=== PATIENT | male | born 1960 | race Caucasian/White ===

== ENCOUNTER 2017-04-15 08:01 | Outpatient (CLI) | payer MEDICARE ==
--- NOTE | ~2017-04-15 | HEMODYNAMI ---
PATIENT:MATTHEW GOMEZ MEDICAL RECORD: [id number] : 62 LOCATION:[facility] ADMISSION DATE: 04/15/17 Generatedon:04/15/20179:29 Patient name: MATTHEW GOMEZ Patient #: [id number] SSN: : 1960 Date of study: 04/15/2017 Page: Of Hemodynamic Procedure Report Patient Data Patient Demographics Procedure consent was obtained First Name: MATTHEW Gender: Male Last Name: JASON : 1960 Middle Initial: RAY Age: 56 year(s) Patient #: [id number] Race: Unknown Additional ID: [id number] Contact details Address: [address] [place] [address] State: [place] City: [facility] Zip code: [address] Admission Admission Data Admission Date: 04/15/2017 Admission Time: 8:01 Weight (lbs.): 209.44 Weight (kg.): 95 Lab Results Lab Result Date: 04/15/2017 Lab Result Time: 0:00 Biochemistry Name Units Result Min Max BUN mg/dl 11 --(-*--)-- 7 18 Creatinine mg/dl 0.7 --(*---)-- 0.6 1.3 CBC Name Units Result Min Max Hemoglobin g/dl 15 --(-*--)-- 13.5 17.5 Procedure Procedure Types Cath Procedure Diagnostic Procedure [facility] w/Coronaries PCI Procedure Coronary Stent Initial Miscellaneous Procedures Moderate Sedation up to 30 minutes Procedure Description Procedure Date Procedure Date: 04/15/2017 Procedure Start Time: 8:59 Procedure End Time: 9:27 Procedure Staff Name Function Dung Sainz MD Performing Physician Echo Fountain RT Scrub Naun Fuentes RN Nurse Niranjan Abarca RT Monitor Procedure Data Cath Procedure Fluoroscopy Diagnostic fluoroscopy Total fluoroscopy Time: 4.6 time: 4.6 min min Diagnostic fluoroscopy Total fluoroscopy dose: dose: 1066 mGy 1066 mGy Contrast Material Contrast Material Type Amount (ml) Isovue 300 117 Entry Location Entry Primary Successful Side Size Upsize Upsize Entry Closure Fuentes ccessful Closure Location (Fr) 1 (Fr) 2 (Fr) Remarks Device Remarks Radial Right 6 Fr Mechanical artery Short Compression Estimated blood loss: 10 ml Diagnostic catheters Device Type Used For End Catheter Placement Terumo 5Fr Felix 110cm Procedure catheter Procedure Complications No complications Procedure Medications Medication Administration Route Dosage 0.9% NaCl I.V. 100 ml/hr Oxygen NC 2 l/min Heparin Flush Bag added to field 2 bags (1000units/500ml NS) Lidocaine 2% added to field 20 Radial Cocktail added to field 1 syringe (Verapomil 2mg/Nitro 400mcg/Heparin 1500units) Versed I.V. 2 mg Fentanyl I.V. 100 mcg Radial Cocktail I.A. 1 syringe (Verapomil 2mg/Nitro 400mcg/Heparin 1500units) Heparin Bolus I.V. 9500 units Plavix P.O. 600 mg Hemodynamics Rest HGB: 15 (g/dl) Heart Rate: 62 (bpm) Pressure Samples Time Site Value (mmHg) Purpose Heart Use Rate(bpm) 9:05 LV 98/2,8 Snapshot 62 9:06 AO 95/56(71) Pullback 62 9:06 LV 100/9,12 Pullback 62 9:07 AO 95/60(76) Snapshot 60 Gradients Valve Time Site 1 Site 2 Mean SEP/DFP Peak To Heart Use (mmHg) (sec/min) Peak Rate (mmHg) (bpm) Aortic 9:06 LV AO 4 11 5 62 100/9,12 95/56(71) Calculations Valve P-P Mean Valve Index Valve Source Name Gradient Area Flow (cm2) Aortic 5 4 5 4 Snapshots Pre Cath Intra NCS Post Cath Vital Signs Time Heart Resp SPO2 etCO2 NIBP (mmHg) Rhythm Pain Sedation Rate (ipm) (%) (mmHg) Status Level (bpm) 8:55:49 61 20 99 33.6 142/84(118) NSR 0 (11) 10(A) , No pain 9:00:32 60 18 95 19.4 120/71(95) NSR 0 (11) 10(A) , No pain 9:05:10 62 16 93 37.3 101/52(78) NSR 0 (11) 10(A) , No pain 9:09:49 61 15 94 41.8 99/57(72) NSR 0 (11) 9(A) , No pain 9:14:27 60 14 94 41.8 106/57(79) NSR 0 (11) 9(A) , No pain 9:19:08 60 14 95 41.1 95/57(84) NSR 0 (11) 9(A) , No pain Medications Time Medication Route Dose Verified Delivered Reason Notes Effectiveness by by 8:54:48 0.9% NaCl I.V. 100 Naun Naun Per physician ml/hr Gina Fuentes RN RN 8:55:02 Oxygen NC 2 l/min Naun Naun Per physician Gina Fuentes RN RN 8:55:23 Heparin Flush added 2 bags Naun Naun used for Bag to Gina Fuentes procedure (1000units/500ml RN RN NS) 8:55:38 Lidocaine 2% added 20ml Naun Naun for local to vial Gina Fuentes anesthetic field BROCK RN 8:55:59 Radial Cocktail added 1 Naun Naun used for (Verapomil to syringe Gina Fuentes procedure 2mg/Nitro field BROCK RN 400mcg/Heparin 1500units) 8:58:24 Versed I.V. 2 mg Naun Naun for sedation Gina Fuentes RN RN 8:58:58 Fentanyl I.V. 100 mcg Naun Naun for sedation Gina Fuentes RN RN 9:03:28 Radial Cocktail I.A. 1 Naun Dung used for (Verapomil syringe Gina Sainz MD procedure 2mg/Nitro RN 400mcg/Heparin 1500units) 9:12:06 Heparin Bolus I.V. 9,500 Naun Dung for units Gina Sainz MD anticoagulation RN 9:21:38 Plavix P.O. 600 mg Naun Dung for Gina Sainz MD antiplatelet RN therapy Procedure Log Time Note 8:25:48 Niranjan Abarca RT(R) sent for patient. Start room use. 8:41:01 Time tracking: Regular hours 8:41:05 Plan of Care:Hemodynamics will remain stable., Cardiac rhythm will remain stable., Comfort level will be maintained., Respiratory function will remain adequate., Patient/ family verbilizes understanding of procedure., Procedure tolerated without complication., Recovers from procedure without complications.. 8:41:19 H&P Date Dictated: 04/12/2017 Within 30 days and on chart., H&P Addendum completed by physician on day of procedure. (MUST COMPLETE FOR ALL OUTPATIENTS). 8:43:22 Patient received from Pre/Post Procedure Room to CCL 1 Alert and oriented. Tansferred to table in Supine position. 8:43:23 Warm blankets applied, and naomie hugger turned on for patient comfort. 8:43:23 Correct patient and procedure confirmed by team. 8:43:25 Signed procedure consent form obtained from patient. 8:43:26 ECG and BP/O2 sat monitors applied to patient. 8:54:48 0.9% NaCl 100 ml/hr I.V. was administered by Naun Fuentes RN; Per physician; 8:54:58 Vital chart was started 8:54:59 Baseline sample Acquired. 8:55:02 Oxygen 2 l/min NC was administered by Naun Fuentes RN; Per physician; 8:55:03 Rhythm: paced 8:55:04 Full Disclosure recording started 8:55:05 Pre-procedure instructions explained to patient. 8:55:06 Pre-op teaching completed and patient verbalized understanding. 8:55:09 Family in waiting room. 8:55:11 Patient NPO since Midnight. 8:55:12 Is the patient allergic to Iodine/contrast media? No. 8:55:14 Is patient on blood thinner?No 8:55:15 Patient diabetic? Yes. 8:55:18 If diabetic: On Metformin? Yes 8:55:20 If on Metformin: Last Dose? 04/13/2017 8:55:23 Heparin Flush Bag (1000units/500ml NS) 2 bags added to field was administered by Naun Fuentes RN; used for procedure; 8:55:24 Previous problem with sedation/anesthesia? No ? 8:55:25 Snore? Yes 8:55:26 Sleep apnea? Yes 8:55:27 Deviated septum? No 8:55:28 Opens mouth fully? Yes 8:55:29 Sticks out tongue? Yes 8:55:32 Airway obstruction? Yes COPD 8:55:38 Lidocaine 2% 20ml vial added to field was administered by Naun Fuentes RN; for local anesthetic; 8:55:41 Dentures? No ? 8:55:44 Pre procedure: right dorsailis pedis pulse 1+ Palpable, but thready & weak; easily obliterated 8:55:48 Modified Kirby's test Ulnar < 7 seconds 8:55:49 Patient pain scale 0/10 ?. 8:55:54 IV patent on arrival in left forearm with 0.9% NaCl at O. 8:55:56 Lab results completed and on chart. 8:55:58 Right Radial & Right Groin area was prepped with chlora-prep and draped in sterile fashion 8:55:59 Radial Cocktail (Verapomil 2mg/Nitro 400mcg/Heparin 1500units) 1 syringe added to field was administered by Naun Fuentes RN; used for procedure; 8:56:00 Alarms reviewed by R. N. 8:56:00 Sharps counted by scrub and verified by R.N. 8:56:01 --------ALL STOP TIME OUT------ 8:56:02 Final Timeout: patient, procedure, and site verified with staff and physician. All members of the team are in agreement. 8:56:04 Right Radial & Right Groin site verified by team. 8:56:07 Physical assessment completed. ASA score P 2 - A patient with mild systemic disease as per Dung Sainz MD. 8:56:10 Sedation plan: IV Moderate Sedation Versed, Fentanyl 8:58:24 Versed 2 mg I.V. was administered by Naun Fuentes RN; for sedation; 8:58:58 Fentanyl 100 mcg I.V. was administered by Naun Fuentes RN; for sedation; 8:59:14 Use device set Radial Dx 8:59:16 Tegaderm 4 x 4 opened to sterile field. 8:59:17 Acist Hand Control opened to sterile field. 8:59:17 Acist Manifold opened to sterile field. 8:59:18 Acist Syringe opened to sterile field. 8:59:19 Medline Cath Pack opened to sterile field. 8:59:19 Bag Decanter opened to sterile field. 8:59:19 Terumo 6Fr Slender Glidesheath opened to sterile field. 8:59:20 St Андрей 260cm J .035 wire opened to sterile field. 8:59:21 MBrace Wrist Support opened to sterile field. 8:59:23 Procedure started. 8:59:28 Local anesthetic to right radial artery with Lidocaine 2% by Dung Sainz MD.INITIAL ACCESS ONLY 9:01:03 Cook 21G 4cm Radial Needle opened to sterile field. 9:03:08 A 6 Fr Short sheath was inserted into the Right Radial artery 9:03:28 Radial Cocktail (Verapomil 2mg/Nitro 400mcg/Heparin 1500units) 1 syringe I.A. was administered by Dung Sainz MD; used for procedure; 9:03:29 Patient Weight : 209.44 lbs 9:03:40 A [employer] Experience 5Fr Felix 110cm catheter was advanced over the wire and used for Procedure. 9:04:57 Lab Result : BUN 11 mg/dl 9::58 Lab Result : Hemoglobin 15 g/dl 9::58 Lab Result : Creatinine 0.7 mg/dl 9:05:43 LV angiography performed. 9:05:47 LV gram done using ARELLANO 9:05:59 EF : 50 % 9:06:39 LV hemodynamics recorded. 9:06:41 Injector settings: Ml/sec: 7, Volume: 15, 9:06:52 RCA angiography performed. 9:07:14 LCA angiography performed. 9:09:16 Catheter exchanged over wire. 9:11:39 [employer] 6FR XBLAD 3.5 guide catheter opened to sterile field. 9:11:39 LoLo BMW [place] 2 J-tip 300cm 0.014 guide wir opened to sterile field. 9:11:40 [employer] BasixCompak Inflation Kit opened to sterile field. 9:11:40 High Pressure Extension Tubing (Sainz) opened to sterile field. 9:11:55 Study PCI Site: [place] pCirc has 70% stenosis. 9:11:58 ACC Pre-intervention ROMANA Flow is 3. 9:12:04 6 Fr XBLAD 3.5 guide catheter was inserted over the wire 9:12:06 Heparin Bolus 9,500 units I.V. was administered by Dung Sainz MD; for anticoagulation; 9:12:30 BMW wire advanced. 9:15:17 Wire advanced across lesion. 9:19:41 Inflation Number: 1 A MeetBalltronic Integrity 4.0 X 12 stent was prepped and advanced across the Prox CX. The stent was deployed at 12 MYRNA for 0:10 (min:sec). 9:19:47 ACC Post-intervention ROMANA Flow is 3. 9:19:49 Stent catheter was removed intact over wire. 9::49 Wire removed. 9::50 Guide catheter removed. 9:21:38 Plavix 600 mg P.O. was administered by Dung Sainz MD; for antiplatelet therapy; 9::49 Sheath removed intact; hemostasis achieved with Mechanical Compression to the Right Radial artery. 9:21:57 Procedure ended.(Physican Out) 9:23:58 Fluoroscopy time 04.60 minutes. 9:24:02 Flurop Dose total: 1066 9:24:02 Fluoroscopy dose: 1066 mGy 9:24:08 Contrast amount:Isovue 300 117ml. 9:24:11 Sharps counted by scrub and verified by R.N. 9:24:18 Insertion/operative site no bleeding no hematoma. 9:24:21 Post Procedure Pulses reassessed and unchanged 9:24:25 Post-procedure physical assessment completed. ASA score P 2 - A patient with mild systemic disease as per Dung Sainz MD. 9:24:27 Post procedure rhythm: unchanged. 9:24:31 Estimated blood loss: 10 ml 9:24:32 Post procedure instruction explained to patient.Patient verbalizes understanding. 9:24:33 Patient needs reinforcement of post procedure teaching. 9:24:45 Procedure type changed to Cath procedure, Diagnostic procedure, LHC, LHC w/Coronaries, PCI procedure, Coronary Stent Initial, Miscellaneous Procedures, Moderate Sedation up to 30 minutes 9:24:49 Procedure Complication : No complications 9:25:17 Terumo TR Band Standard opened to sterile field. 9:25:31 Procedure and supply charges have been captured, reviewed, submitted and are correct. 9:27:23 Vital chart was stopped 9:27:23 See physician's report for complete and final results. 9:27:27 Report given to Pre/Post Procedure Room. 9:27:44 Patient transfered to Pre/Post Procedure Room with Stretcher. 9::47 Procedure ended. 9::47 Full Disclosure recording stopped 9:28:00 End room use (Document Last) Intervention Summary Intervention Notes Time ActionType Lesion and Equipment Action# Pressure Duration Attributes Used 9:19:41 Place stent Prox CX Medtronic 1 12 00:10 Integrity 4.0 X 12 stent Device Usage Item Name Manufacture Quantity Catalog Hospital Part Current Minimal Lot# / Number Charge Number Stock Stock Serial# Code Tegaderm 4 3M 1 [id number] 035616 639134 5 x 4 Acist Hand Acist 1 73265 592679 803464 706674 5 Control Medical Systems Inc Acist Acist 1 61904 565545 673366 961736 5 Manifold Medical Systems Inc Acist Acist 1 87080 684963 385864 238172 20 Syringe Medical Systems Inc Medline Cardinal 1 [id number] 480518 29070 997825 5 Cath Pack Health Bag Microtek 1 2002S 700710 28960 197235 5 Decanter Medical Inc. Terumo 6Fr Terumo 1 [id number] 090453 598802 960204 [address] Андрей 1 801522 348560 078133 337941 30 260cm J .035 wire MBrace Advanced 1 [id number] 888173 25045 076021 5 Wrist Vascular Support Dynamics Cook 21G Cook Medical 1 [id number] 130498 749038 716586 5 4cm Radial Needle Terumo 5Fr Terumo 1 10-2601 621142 055907 401613 5 Felix 110cm catheter Cordis 6FR Cardinal 1 [id number] 557115 841363 079382 10 XBLAD 3.5 Health guide catheter Alvarez BMW Alvarez 1 [id number] 563733 258495 859953 5 [place] 2 Vascular J-tip 300cm 0.014 guide wir Merit Merit 1 CU0384 296991 713584 349006 15 BasixLds Hospit[facility] Medical Inflation Kit High Merit 1 [id number] 058494 92379 558953 10 Pressure Medical Extension Tubing (Sainz) Medtronic Medtronic 1 [id number] 342749 099674 0 [id number] Integrity 4.0 X 12 stent Terumo TR Terumo 1 [id number] 341209 195763 347201 40 Band Standard Signature Audit Brantley Stage Time Signature Unsigned Intra-Procedure 04/15/2017 Niranjan Abarca 9:29:38 AM RT(R) Signatures Monitor : Niranjan Abarca RT Signature : Date : Time : [place] [address] [place] [address]
[2017-04-15 06:58] VITALS: BP 137/82; BMI 30.8
[2017-04-15 07:05] LABS: BASOPHILS 0.1 % (0-2); EOSINOPHILS 1.8 % (0-7); HEMATOCRIT 43.3 % (42.0-54.0); IMMATURE GRANULOCYTES 0.3 % (0-5); LYMPHOCYTES 25.4 % (15-50); MCH 30.9 pg (26.0-34.0); MCHC 34.6 g/dL (31.0-37.0); MCV 89.3 fL (80.0-100.0); MEAN PLATELET VOLUME 10.3 fL (7.4-10.4); MONOCYTES 6.9 % (2-11); NEUTROPHILS 65.5 % (40-80); PLATELET COUNT 147 10x3/uL (130-400); RBC 4.85 10x6/uL (4.20-6.10); WBC 7.4 10x3/uL (4.8-10.8)
[2017-04-15 07:18] LABS: CALC OSMOLALITY 276 mosm/kg (275-300); CALCIUM 9.4 mg/dL (8.5-10.1); CARBON DIOXIDE 26.5 mmol/L (21.0-32.0); CHLORIDE - SERUM 102 mmol/L (98-107); CREATININE - SERUM 0.7 mg/dL (0.6-1.3); GLUCOSE 169 mg/dL (74-106); SODIUM 137 mmol/L (136-145); UREA NITROGEN 11 mg/dL (7-18); eGFR NON AFRICAN AMERICAN > 90 mL/min (90-120)
[~2017-04-15 08:01] MED LIST: CYMBALTA60 MG PO; GLUCOPHAGE1000 MG PO; LEVEMIR100 U/M1; LEVEMIR100 U/M1 SC; PROTONIX40 MG PO
[2017-04-15] MEDS ORDERED: PLAVIX75 MG PO (09:40)
[2017-04-15] MEDS ORDERED: BAYER CHEWABLE81 MG PO (09:40)
--- NOTE | 2017-04-15 09:44 | NUR ---
RECIEVED TO ROOM VIA STRETCHER FROM ICT HELP DESK OFFICER WITH REPORTS OF ONE STENT TO THE CIRCUMFLEX. TR BAND TO THE R/WRIST CDI NO BLEEDING NO HEMATOMA NOTED. INSTRUCTED PATIENT TO KEEP RUE STRAIGHT NO BENDING OR FLEXING OF WRIST
--- NOTE | 2017-04-15 09:58 | NUR ---
VSS WITH CHEST PAIN DENIED. TR BAND TO R/WRIST CDI NO BLEEDING NO HEMATOMA NOTED. REPOSITIONED TO SITTING WITH HOB UP 30 DEGREES. SANDWICH AND SODA TO BEDSIDE
--- NOTE | 2017-04-15 10:16 | NUR ---
DENIED PAIN OR NEEDS AT THIS TIME WITH TR BAND TO R/WRIST CDI
--- NOTE | 2017-04-15 10:30 | NUR ---
PATIENT VOIDS 400 CC URINE TO COLLECTION
--- NOTE | 2017-04-15 10:52 | NUR ---
VISITING WITH FAMILY AT BEDSIDE. TR BAND REMAINS TO R/WRIST CDI NO BLEEDING NO HEMATOMA NOTED. VSS NO DISTRESS
--- NOTE | 2017-04-15 11:10 | NUR ---
1110 PT RESTING WITH EYES CLOSED, AWAKENS EASILY. DENIES ANY C/O. TR BAND IS CDI, NO BLEEDING OR HEMATOMA NOTED. FINGERS WARM, CAP REFILL IS BRISK. CALL LIGHT IN REACH.
--- NOTE | 2017-04-15 12:36 | NUR ---
1220 4 CC OF AIR REMOVED FROM TR BAND WITH NO BLEEDING OR HEMATOMA NOTED. FINGERS WARM, CAP REFILL IS BRISK. PT DENIES ANY C/O AT THIS TIME. FAMILY AT BEDSIDE.
--- NOTE | 2017-04-15 13:10 | NUR ---
1310 ALL AIR HAS BEEN REMOVED FROM TR BAND WITH NO BLEEDING OR HEMATOMA NOTED AT SITE. IV DC'D WITH CATH INTACT. PT IS DRESSING FOR DC TO HOME.
--- NOTE | 2017-04-15 13:51 | NUR ---
1330 DC INSTRUCTIONS HAVE BEEN REVIEWED WITH PT AND FAMILY WHO VERBALIZE UNDERSTANDING. REVIEWED WITH PT TO HOLD METFORMIN FOR 48 HOURS AFTER CATH THEN RESTART ORDERED AND PT VERBALIZES UNDERSTANDING. PLAVIX PRESCRIPTION TO PATIENT. PT VERBALIZES UNDERSTADNING TO START THIS MEDICATION TOMORROW. PT HAS AMBULATED TO THE BATHROOM AND VOIDED QS. PT ESCORTED TO PRIVATE AUTO VIA WC BY NURSE WITH FAMILY DRIVING HIM HOME. 2X2 AND TEGADERM REMAIN CDI TO CATH SITE, WRIST IMMOBILIER IN PLACE. PT DENIES ANY C/O UPON DC TO HOME.
== END 2017-04-15 13:30 | disposition home or self-care (01) ==
LOC: D.CATH 08:01
PROVIDERS: Internal Medicine Cardiovascular Disease
DX: I25.119 Atherosclerotic heart disease of native coronary artery with unspecified angina pectoris (principal); Z01.812 Encounter for preprocedural laboratory examination

== ENCOUNTER 2018-09-28 08:45 | Outpatient (CLI) | payer MEDICARE ==
[~2018-09-28] VITALS: Ht 175.3 cm; Wt 94.5 kg
--- NOTE | ~2018-09-28 | HEMODYNAMI ---
PATIENT:MATTHEW GOMEZ MEDICAL RECORD: [id number] : 62 LOCATION:[facility] ADMISSION DATE: 09/28/18 Generatedon:09/28/201811:08 Patient name: MATTHEW GOMEZ Patient #: [id number] SSN: : 1960 Date of study: 09/28/2018 Page: Of Hemodynamic Procedure Report Patient Data Patient Demographics Procedure consent was obtained First Name: MATTHEW Gender: Male Last Name: JASON : 1960 Middle Initial: RAY Age: 57 year(s) Patient #: [id number] Race: Unknown Additional ID: [id number] Contact details Address: [address] [place] [address] State: [place] City: [facility] Zip code: [address] Admission Admission Data Admission Date: 09/28/2018 Admission Time: 8:45 Admit Source: Other Procedure Procedure Types Cath Procedure Diagnostic Procedure LHC LHC w/Coronaries Peripheral Cath Diagnostic Procedure 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 Peripheral Procedures Four Vessel Arteriogram Procedure Description Procedure Date Procedure Date: 09/28/2018 Procedure Start Time: 10:55 Procedure End Time: 11:06 Procedure Staff Name Function David Greer MD Performing Physician Kendal Delgado RN Nurse Luca Adame RT Scrub Echo Founatin RT Monitor Procedure Data Cath Procedure Fluoroscopy Diagnostic fluoroscopy Total fluoroscopy Time: 1.9 time: 1.9 min min Diagnostic fluoroscopy Total fluoroscopy dose: 685 dose: 685 mGy mGy Contrast Material Contrast Material Type Amount (ml) Isovue 300 122 Entry Location Entry Primary Successful Side Size Upsize Upsize Entry Closure Succes sful Closure Location (Fr) 1 (Fr) 2 (Fr) Remarks Device Remarks Femoral Right 5 Fr Exoseal artery Estimated blood loss: 5 ml Diagnostic catheters Device Type Used For End Catheter Placement MULTIPACK Pigtail 5 Fr Procedure catheter MULTIPACK JL 4.0 5Fr Procedure catheter MULTIPACK 3DRC 5Fr Procedure catheter Procedure Complications No complications Procedure Medications Medication Administration Route Dosage 0.9% NaCl I.V. 100 ml/hr Oxygen etCO2 Nasal cannula 2 l/min Lidocaine 2% added to field 20 Heparin Flush Bag added to field 2 bags (1000units/500ml NS) Versed I.V. 2 mg Fentanyl I.V. 50 mcg Versed I.V. 1 mg Fentanyl I.V. 25 mcg Hemodynamics Rest Heart Rate: 66 (bpm) Snapshots Pre Cath Intra NCS Post Cath Vital Signs Time Heart Resp SPO2 etCO2 NIBP (mmHg) Rhythm Pain Sedation Rate (ipm) (%) (mmHg) Status Level (bpm) 10:28:33 65 16 99 35.8 132/96(112) Paced 0 (11) 10(A) , No pain 10:32:41 60 18 98 32.9 138/91(109) Paced 0 (11) 10(A) , No pain 10:36:57 58 17 95 36.6 120/76(99) Paced 0 (11) 10(A) , No pain 10:41:05 60 18 97 35.1 121/76(94) Paced 0 (11) 10(A) , No pain 10:45:15 59 15 97 38.1 125/70(99) Paced 0 (11) 10(A) , No pain 10:49:15 62 15 98 40.3 115/74(89) Paced 0 (11) 10(A) , No pain 10:53:22 62 14 98 39.6 107/72(91) Paced 0 (11) 10(A) , No pain 10:57:28 58 16 98 35.8 107/71(94) Paced 0 (11) 10(A) , No pain 11:01:34 63 13 98 38.1 119/71(88) Paced 0 (11) 10(A) , No pain 11:05:46 62 18 97 35.8 116/67(93) Paced 0 (11) 10(A) , No pain Medications Time Medication Route Dose Verified Delivered Reason Notes Eff ectiveness by by 10:30:08 0.9% NaCl I.V. 100 David Kendal used for ml/hr Percy Delgado director of institutional research 10:30:16 Oxygen etCO2 2 David Kendal used for Nasal l/min Percy Delgado procedure cannula RN 10:30:23 Lidocaine 2% added 20ml David Hernandez for local to vial Percy Greer MD anesthetic field 10:30:28 Heparin Flush added 2 David Ellingtonrey used for Bag to bags Percy Greer MD procedure (1000units/500ml field NS) 10:49:35 Versed I.V. 2 mg David Kendal for Percy Delgado sedation RN 10:49:42 Fentanyl I.V. 50 David Kendal for mcg Percy Delgado sedation RN 10:53:17 Versed I.V. 1 mg David Laneyla for Percy Delgado sedation RN 10:53:22 Fentanyl I.V. 25 David Kendal for mcg Percy Delgado sedation publications inspector Log Time Note 10:27:34 Vital chart was started 10:27:37 Admit Source: Other 10::59 Diagnostic Cath status Elective 10:28:01 Luca Adame RT(R) sent for patient. Start room use. 10:28:02 Time tracking: Regular hours (M-F 7:00 - 5:00) 10:28:07 Plan of Care:Hemodynamics will remain stable., Cardiac rhythm will remain stable., Comfort level will be maintained., Respiratory function will remain adequate., Patient/ family verbilizes understanding of procedure., Procedure tolerated without complication., Recovers from procedure without complications.. 10:28:11 Patient received from Pre/Post Procedure Room to CCL 1 Alert and oriented. Tansferred to table in Supine position. 10:28:12 Warm blankets applied, and naomie hugger turned on for patient comfort. 10:28:12 Correct patient and procedure confirmed by team. 10:28:14 Signed procedure consent form obtained from patient. 10:28:15 ECG and BP/O2 sat monitors applied to patient. 10:28:16 Baseline sample Acquired. 10:28:19 Rhythm: sinus rhythm 10:28:20 Full Disclosure recording started 10:28:36 Pre-procedure instructions explained to patient. 10:28:37 Pre-op teaching completed and patient verbalized understanding. 10:28:39 Family in waiting room. 10:28:41 Patient NPO since Midnight. 10:28:48 Is the patient allergic to Iodine/contrast media? No. 10:30:08 0.9% NaCl 100 ml/hr I.V. was administered by Kendal Delgado RN; used for procedure; 10:30:14 Is patient on blood thinner?No 10:30:16 Oxygen 2 l/min etCO2 Nasal cannula was administered by Kendal Delgado RN; used for procedure; 10:30:16 Patient diabetic? Yes. 10:30:18 If diabetic: On Metformin? Yes 10:30:21 If on Metformin: Last Dose? 09/27/2018 10:30:22 ----Pre-sedation anethsthesia assessment.---- 10:30:23 Lidocaine 2% 20ml vial added to field was administered by David Greer MD; for local anesthetic; 10:30:25 Previous problem with sedation/anesthesia? No ? 10:30:27 Snore? Yes 10:30:28 Heparin Flush Bag (1000units/500ml NS) 2 bags added to field was administered by David Greer MD; used for procedure; 10:30:28 Sleep apnea? Yes 10:30:29 Deviated septum? No 10:30:31 Opens mouth fully? Yes 10:30:33 Sticks out tongue? Yes 10:30:37 Airway obstruction? Yes ? 10:30:40 Dentures? No ? 10:30:42 Pre procedure: right dorsailis pedis pulse 2+ Normal; easily identifiable; not easily obliterated 10:30:45 Patient pain scale 0/10 ?. 10:30:49 IV patent on arrival in left antecubital with 0.9% NaCl at 10ml/hr. 10:30:54 Lab results completed and on chart. 10:30:57 Right groin area was prepped with chlora-prep and draped in sterile fashion 10:30:58 Alarms reviewed by R. N. 10:30:58 Sharps counted by scrub and verified by R.N. 10:44:42 Baseline sample Acquired. 10:45:00 H&P Date Dictated: 09/26/2018 Within 30 days and on chart., H&P Addendum completed by physician on day of procedure. (MUST COMPLETE FOR ALL OUTPATIENTS). 10:45:04 Use device set Femoral Dx 10:45:05 ACIST Syringe (05954) opened to sterile field. 10:45:06 Bag Decanter (2002) opened to sterile field. 10:45:07 ACIST Hand Control (75869) opened to sterile field. 10:45:07 ACIST Manifold (43563) opened to sterile field. 10:45:08 Tegaderm 4 x 4 (1626W) opened to sterile field. 10:45:09 Medline Cath Pack ([id number]) opened to sterile field. 10:45:09 DIAGNOSTIC WIRE .035 260cm J wire (245926) opened to sterile field. 10:45:10 DIAGNOSTIC Multipack 5Fr catheter set (ES3660) opened to sterile field. 10:45:10 SHEATH 5FR [place] (TDC092) opened to sterile field. 10:49:15 --------ALL STOP TIME OUT------ 10:49:16 Final Timeout: patient, procedure, and site verified with staff and physician. All members of the team are in agreement. 10:49:17 Right groin site verified by team. 10:49:20 Maximum allowable Isovue 300 dose 300ml. Physician notified. (300ml for normal creatinines. For patients with creatinine of 1.7 or higher multiply weight(kg) x 5 divided by creatinine.) 10:49:23 Fire Safety Assessment: A--An alcohol-based skin anteseptic being used preoperatively., C--Open oxygen or nitrous oxide is being used., D--An ESU, laser, or fiber-optic light is being used. 10:49:30 Physical assessment completed. ASA score P 2 - A patient with mild systemic disease as per David Greer MD. 10:49:33 Sedation plan: IV Moderate Sedation Medication:Versed, Fentanyl 10:49:35 Versed 2 mg I.V. was administered by Kendal Delgado RN; for sedation; 10:49:42 Fentanyl 50 mcg I.V. was administered by Kendal Delgado RN; for sedation; 10:53:17 Versed 1 mg I.V. was administered by Kendal Delgado RN; for sedation; 10:53:22 Fentanyl 25 mcg I.V. was administered by Kendal Delgado RN; for sedation; 10:54:59 Procedure started. 10:55:00 Zero performed for pressure channel P1 10:55:15 Local anesthetic to right femoral artery with Lidocaine 2% by David Greer MD.INITIAL ACCESS ONLY 10:56:22 A 5 Fr sheath was inserted into the Right Femoral artery 10:56:42 A MULTIPACK Pigtail 5 Fr catheter was advanced over the wire and used for Procedure. 10:56:56 LV gram done using ARELLANO 10:57:01 Injector settings: Ml/sec: 10, Volume: 20, 10:57:24 EF : 50 % 10:57:25 Catheter removed. 10:57:30 A MULTIPACK JL 4.0 5Fr catheter was advanced over the wire and used for Procedure. 10:59:10 LCA angiography performed. 10:59:11 Catheter removed. 10:59:18 A MULTIPACK 3DRC 5Fr catheter was advanced over the wire and used for Procedure. 11:00:07 RCA angiography performed. 11:01:22 Right carotid angiography performed. 11:01:23 Left carotid angiography performed. 11:01:30 Catheter removed. 11:01:35 EXOSEAL 5Fr (EX500) opened to sterile field. 11:01:38 MICROPUNCTURE 4FR Personal MedSystems (I67875) opened to sterile field. 11:02:59 Sheath removed intact; hemostasis achieved with Exoseal to the Right Femoral artery. 11:03:08 Procedure ended.(Physican Out) 11:03:33 Fluoroscopy time 01.90 minutes. 11:03:39 Fluoroscopy dose: 685 mGy 11:03:39 Flurop Dose total: 685 11:04:28 Contrast amount:Isovue 300 122ml. 11:04:30 Sharps counted by scrub and verified by R.N. 11:04:32 Post-op/insertion site Right Femoral artery dressed using a 4 x 4 and Tegaderm. 11:04:35 Post-procedure physical assessment completed. ASA score P 2 - A patient with mild systemic disease as per David Greer MD. 11:04:41 Post procedure rhythm: paced 11:04:44 Estimated blood loss: 5 ml 11:04:45 Post procedure instruction explained to patient.Patient verbalizes understanding. 11:04:45 Patient needs reinforcement of post procedure teaching. 11:05:50 Procedure and supply charges have been captured, reviewed, submitted and are correct. 11:05:54 Procedure Complication : No complications 11:06:02 Vital chart was stopped 11:06:04 Report given to Pre/Post Procedure Room. 11:06:05 See physician's report for complete and final results. 11:06:07 Patient transfered to Pre/Post Procedure Room with Bed. 11:06:09 Procedure ended. 11:06:09 Full Disclosure recording stopped 11:06:13 End room use (Document Last) Device Usage Item Name Manufacture Quantity Catalog Hospital Part Current Minimal Lot# / Number Charge Number Stock Stock Serial# Code ACIST Syringe Acist 1 38119 556499 241140 811989 20 (77531) Medical Systems Inc Bag Decanter Microtek 1 2001S 857303 04736 801347 5 (2001S) Medical Inc. ACIST Hand Acist 1 61368 733394 502108 467136 5 Control Medical (34725) Systems Inc ACIST Acist 1 60322 327202 819526 735067 5 Manifold Medical (57016) Systems Inc Tegaderm 4 x 3M 1 1626W 521683 896219 587410 5 4 (1626W) Medline Cath Medline 1 [id number] 798958 69842 016009 5 Pack ([id number]) DIAGNOSTIC St [place] 1 533409 132681 295518 738305 30 WIRE .035 260cm J wire (332807) DIAGNOSTIC Cardinal 1 QS3940 022845 85356 729820 30 Multipack 5Fr Health catheter set (HH1762) SHEATH 5FR Terumo 1 RTE050 356815 470753 867124 5 [place] (RXH770) MULTIPACK Cardinal 1 004042 5 Pigtail 5 Fr Health catheter MULTIPACK JL Cardinal 1 446351 5 4.0 5Fr Health catheter MULTIPACK Cardinal 1 466700 5 3DRC 5Fr Health catheter EXOSEAL 5Fr Cardinal 1 EX500 278137 478851 425767 10 (EX500) Health MICROPUNCTURE [facility] 1 [id number] 335694 647301 348213 5 4FR [place] ([id number]) Signature Audit [place] Stage Time Signature Unsigned Intra-Procedure 09/28/2018 Echo Fountain 11:08:16 AM RT(R) Signatures Monitor : Echo Fountain Signature : RT Date : Time : [place] [id number] [place] [address]
[~2018-09-28 08:45] MED LIST changes: +BAYER CHEWABLE81 MG PO; +PLAVIX75 MG PO
[2018-09-28] MEDS ORDERED: PRAVACHOL20 MG PO (09:01)
[2018-09-28] MEDS ORDERED: METOPROLOL TART50 MG PO (09:01)
[2018-09-28] MEDS ORDERED: TRESIBA FL100 UNIT/1 SC (09:02)
[2018-09-28 09:16] VITALS: BP 131/74; Ht 175.3 cm; Wt 94.5 kg
[2018-09-28 09:21] LABS: BASOPHILS 0.1 % (0-2); EOSINOPHILS 1.4 % (0-7); HEMATOCRIT 42.7 % (42.0-54.0); HEMOGLOBIN 15.2 g/dL (13.5-17.5); IMMATURE GRANULOCYTES 0.2 % (0-5); LYMPHOCYTES 25.9 % (15-50); MCH 30.6 pg (26.0-34.0); MCHC 35.6 g/dL (31.0-37.0); MCV 86.1 fL (80.0-100.0); MEAN PLATELET VOLUME 9.9 fL (7.4-10.4); MONOCYTES 8.7 % (2-11); NEUTROPHILS 63.7 % (40-80); PLATELET COUNT 175 10x3/uL (130-400); RBC 4.96 10x6/uL (4.20-6.10); RDW 13.6 % (11.5-14.5)
[2018-09-28 09:31] LABS: CALC OSMOLALITY 279 mosm/kg (275-300); CALCIUM 9.1 mg/dL (8.5-10.1); CARBON DIOXIDE 28.8 mmol/L (21.0-32.0); CHLORIDE - SERUM 102 mmol/L (98-107); CREATININE - SERUM 0.9 mg/dL (0.6-1.3); GLUCOSE 175 mg/dL (74-106); POTASSIUM - SERUM 4.4 mmol/L (3.5-5.1); SODIUM 138 mmol/L (136-145); UREA NITROGEN 12 mg/dL (7-18); eGFR NON AFRICAN AMERICAN > 90 mL/min (90-120)
--- NOTE | 2018-09-28 11:30 | NUR ---
2L NC, NO RESP DISTRESS. RIGHT GROIN 5F EXOSEAL CDI, NO BLEEDING OR HEMATOMA NOTED. NO C/O PAIN OR NAUSEA. VSS. FAMILY AT BEDSIDE, CALL LIGHT WITHIN REACH.
--- NOTE | 2018-09-28 12:05 | NUR ---
HOB ELEVATED 30 DEGREES. RIGHT GROIN 5F EXOSEAL CDI, NO BLEEDING OR HEMATOMA NOTED. SIPPING ON DRINK AND EATING SANDWICH WITH NO C/O NAUSEA. VSS. WILL CONTINUE TO MONITOR CLOSELY.
--- NOTE | 2018-09-28 12:20 | NUR ---
400CC VOIDED INTO URINAL.
--- NOTE | 2018-09-28 12:40 | NUR ---
RIGHT GROIN 5F EXOSEAL CDI, NO BLEEDING OR HEMATOMA NOTED. LEFT PIV D/C'D WITH CATHETER INTACT, BAND AID TO SITE. UP TO BEDSIDE TO GET DRESSED.
--- NOTE | 2018-09-28 12:50 | NUR ---
DISCHARGE INSTRUCTIONS GIVEN TO PT AND . BOTH VERBALIZED UNDERSTANDING.
--- NOTE | 2018-09-28 12:58 | NUR ---
TAKEN OUT VIA WHEELCHAIR BY CATH POWER SYSTEM OPERATOR. LEFT FACILITY WITH FAMILY AND ALL PERSONAL BELONGINGS.
--- NOTE | 2018-09-28 14:39 | OP ---
PATIENT NAME: MATTHEW GOMEZ MEDICAL RECORD: [id number] :62 LOCATION:D[facility] ADMISSION DATE: SURGEON: FAHAD CORNELL MD DATE OF OPERATION: 09/28/2018 PROCEDURES: 1. Left heart catheterization. 2. Selective coronary angiography. 3. Left ventriculogram. 4. Four-vessel carotid vertebral angiography. INDICATION: Chest pain compatible with angina, dizziness, and near syncope. PROCEDURE IN DETAIL: After informed consent was obtained and after a detailed description of risks, benefits as well as alternative therapies, the patient elected to proceed with angiogram and heart catheterization. The right femoral area was prepped and draped in normal sterile fashion. Right femoral artery was cannulated via modified Seldinger technique with placement of 5-Lithuanian sheath. All catheters exchanged through this sheath. FINDINGS: There was subselection of each subclavian as well as the left carotid. RIGHT SIDE: The common internal and external carotids have mild plaquing, none greater than 10% to 20%, no flow-limiting stenosis. Vertebral artery has no significant disease. LEFT SYSTEM: The common internal and external carotids have mild plaquing, none greater than 10% to 20%, no flow-limiting stenosis. Vertebral artery has no significant disease. Left ventriculogram was performed in standard 30-degree ARELLANO view, reveals good cardiac wall motion throughout all segments. Overall ejection fraction estimated 50%. SELECTIVE CORONARY ANGIOGRAPHY: Left main, less anterior descending, left circumflex, right coronary artery have only minimal irregularities, no flow-limiting stenosis, nothing greater than 10%. OVERALL IMPRESSION: 1. Minimal coronary artery disease is present. 2. Minimal carotid vascular disease is present. No flow limiting stenosis on either with preserved left ventricular function. TRANSINT:[id number] Voice Confirmation ID: [id number] DOCUMENT ID: [id number] FAHAD CORNELL MD at 1439 CC: [id number] DICTATION DATE: 09/28/18 1107 PANEL MAKER: 09/28/18 1317 DEP CLI 09/28/18 [id number] [place] [address]
== END 2018-09-28 12:58 | disposition home or self-care (01) ==
LOC: D.CATH 08:45
PROVIDERS: ATTEND Internal Medicine Interventional Cardiology
DX: R07.89 Other chest pain (principal); R55 Syncope and collapse; R42 Dizziness and giddiness; Z01.812 Encounter for preprocedural laboratory examination

== ENCOUNTER → 2019-02-16 09:12 | Outpatient (CLI) | payer MEDICARE ==
[2018-09-28 09:16] VITALS: BMI 30.8
[~2019-02-16 09:12] MED LIST changes: +LEVEMIR IN100 UNITS/ SC; +METOPROLOL TART50 MG PO; +PIOGLITAZONE15 MG PO; +PRAVACHOL20 MG PO; +TRESIBA FL100 UNIT/1 SC; +VIAGRA100 MG PO
--- NOTE | 2019-02-22 14:32 | ST ---
PATIENT:MATTHEW GOMEZ MEDICAL RECORD: [id number] SEX: M LOCATION:[facility] ORDER #: ADMISSION DATE: 02/16/19 AGE OF PATIENT: 58 REFERRING PHYSICIAN: INTERPRETING PHYSICIAN: FAHAD CORNELL MD DATE OF SERVICE: 02/16/2019 INDICATION: Angina, coronary artery disease, and abnormal ECG. He was exercised on standard Lexiscan protocol with 28 mCi of sestamibi injected at peak stress, 10 mCi were used previously for rest images. FINDINGS: Gated SPECT reveals preserved ejection fraction at 52% with good wall motioning and thickening and brightening throughout all segments. SPECT IMAGING: Cardiolite was used as myocardial perfusion agent. There are large areas of reversibility inferiorly, apically, and anteriorly. This includes the basal, mid, apical anterior segments basal, mid, apical and inferior segments as well as the apex itself. The degree of reversibility is moderate to severe. The amount of myocardium involved is very large. OVERALL IMPRESSION: This is a high risk abnormal nuclear stress test, large area of reversible ischemia inferiorly, apically, and anteriorly suggestive of multivessel coronary artery disease. TRANSINT:[id number] Voice Confirmation ID: [id number] DOCUMENT ID: [id number] cc: EMILIE Griffith JEFFREY MD at 1432 CC: [id number] DICTATION DATE: 02/17/19 1356 CORE EXTRUDER: 02/17/19 2339 DEP CLI 02/16/19 [place] [id number]
== END | disposition home or self-care (01) ==
LOC: D.HCCARDIO 09:12
PROVIDERS: ATTEND Internal Medicine Interventional Cardiology
DX: I25.10 Atherosclerotic heart disease of native coronary artery without angina pectoris (principal)

== ENCOUNTER 2019-02-22 08:16 | Outpatient (CLI) | payer MEDICARE ==
[~2019-02-22] VITALS: Ht 175.3 cm; Wt 100.0 kg
--- NOTE | ~2019-02-22 | HEMODYNAMI ---
PATIENT:MATTHEW GOMEZ MEDICAL RECORD: [id number] : 62 LOCATION:[facility] ADMISSION DATE: 02/22/19 Generatedon:02/22/201910:15 Patient name: MATTHEW GOMEZ Patient #: [id number] SSN: [id number] : 1960 Date of study: 02/22/2019 Page: Of Hemodynamic Procedure Report Patient Data Patient Demographics Procedure consent was obtained First Name: MATTHEW Gender: Male Last Name: JASON : 1960 Middle Initial: RAY Age: 58 year(s) Patient #: [id number] Race: Unknown SSN: [id number] Additional ID: [id number] Contact details Address: [address] [place] [address] State: [place] City: [facility] Zip code: [address] Admission Admission Data Admission Date: 02/22/2019 Admission Time: 8:16 Arrival Date: 02/22/2019 Arrival Time: 10:30 Admit Source: Other Insurance Payor: Medicare Height (in.): 68.9 BSA: 2.15 (m2) Height (cm.): 175 BMI: 32.65 (kg/m2) Weight (lbs.): 220.46 Weight (kg.): 100 Lab Results Lab Result Date: 02/22/2019 Lab Result Time: 0:00 Biochemistry Name Units Result Min Max BUN mg/dl 11 --(-*--)-- 7 18 Creatinine mg/dl 0.9 --(-*--)-- 0.6 1.3 eGFR ml/min 90 --(*---)-- 90 120 NONAFRICAN CBC Name Units Result Min Max Hemoglobin g/dl 15.4 --(-*--)-- 13.5 17.5 Procedure Procedure Types Cath Procedure Diagnostic Procedure LHC LH w/Coronaries Sedation Charges Moderate Sedation up to 15 minutes Procedure Description Procedure Date Procedure Date: 02/22/2019 Procedure Start Time: 9:52 Procedure End Time: 10:11 Procedure Staff Name Function Lanny Parrish RN Senior Technical Architect David Greer MD Performing Physician Jose Fraser RT Scrub Kendal Delgado RN Nurse Selene Ravi RT Monitor Procedure Data Cath Procedure Fluoroscopy Diagnostic fluoroscopy Total fluoroscopy Time: 3.3 time: 3.3 min min Diagnostic fluoroscopy Total fluoroscopy dose: 724 dose: 724 mGy mGy Contrast Material Contrast Material Type Amount (ml) Isovue 300 53 Entry Location Entry Primary Successful Side Size Upsize Upsize Entry Closure Fuentes ccessful Closure Location (Fr) 1 (Fr) 2 (Fr) Remarks Device Remarks Radial Right 6 Fr Mechanical artery Short Compression Estimated blood loss: 5 ml Diagnostic catheters Device Type Used For End Catheter Placement DIAGNOSTIC [place] 110cm 5 Multi-vessel Fr catheter ([id number]) Angiography Procedure Complications No complications Procedure Medications Medication Administration Route Dosage Oxygen etCO2 Nasal cannula 2 l/min Lidocaine 2% added to field 20 Heparin Flush Bag added to field 2 bags (1000units/500ml NS) 0.9% NaCl I.V. 100 ml/hr Radial Cocktail I.A. 1 syringe (Verapamil 2mg/Nitro 400mcg/Heparin 1500units) Versed I.V. 1 mg Fentanyl I.V. 50 mcg Versed I.V. 1 mg Fentanyl I.V. 50 mcg Hemodynamics Rest BSA: 2.15 (m2) HGB: 15.4 (g/dl) O2 Consumption: Estimated: 246.09 (ml/min) O2 Co nsumption indexed: Estimated:114.46 (ml/min/m) Heart Rate: 60 (bpm) Pressure Samples Time Site Value (mmHg) Purpose Heart Use Rate(bpm) 9:56 LV 28/20,14 Snapshot 65 Snapshots Pre Cath Intra NCS Post Cath Vital Signs Time Heart Resp SPO2 etCO2 NIBP (mmHg) Rhythm Pain Sedation Rate (ipm) (%) (mmHg) Status Level (bpm) 9:46:29 67 21 99 30.1 156/97(137) Paced 0 (11) 10(A) , No pain 9:50:59 60 19 97 33.9 131/84(103) Paced 0 (11) 10(A) , No pain 9:55:23 64 20 96 30.9 114/74(86) Paced 0 (11) 9(A) , No pain 9:59:45 63 17 94 33.2 115/71(91) Paced 0 (11) 9(A) , No pain 10:04:03 60 17 96 36.2 113/72(88) Paced 0 (11) 9(A) , No pain 10:06:43 60 16 95 36.2 113/74(86) Paced 0 (11) 10(A) , No pain 10:11:03 60 16 96 36.2 123/72(90) Paced 0 (11) 10(A) , No pain Medications Time Medication Route Dose Verified Delivered Reason Notes Effectiveness by by 9:50:08 Oxygen etCO2 2 l/min Davidnapoleon Fishie used for Nasal Percy Parrish RN procedure cannula 9:50:33 Lidocaine 2% added 20ml Davidnapoleon Hernandez for local to vial Percy Greer MD anesthetic field 9:50:38 Heparin Flush added 2 bags David Hernandez used for Bag to Percy Greer MD procedure (1000units/500ml field NS) 9:50:52 0.9% NaCl I.V. 100 David Ca Per ml/hr Percy Parrish RN physician 9:51:19 Versed I.V. 1 mg David Ca for sedation Percy Parrish RN 9:51:24 Fentanyl I.V. 50 mcg David Ca for sedation Percy Parrish RN 9:54:34 Versed I.V. 1 mg David Fishie for sedation Percy Parrish RN 9:54:37 Fentanyl I.V. 50 mcg David Ca for sedation Percy Parrish RN 9:55:31 Radial Cocktail I.A. 1 David Hernandez for (Verapamil syringe Percy Greer MD vasodilation 2mg/Nitro 400mcg/Hepari Procedure Log Time Note 9:23:28 Informed consent obtained and on chart 9:28:11 Admit Source: Other 9:29:39 ACC Patient presents with Stable Angina CCS Anginal Class 3--Marked limitation of physical activity, angina occurs with ordinary activity.. 9:30:38 ACCPatient has been prescribed/administered the following anti-anginal medication within the last 2 weeks: Beta Judith 9:30:41 Procedure Status Elective Heart Cath (OP). 9:30:42 Kendal Delgado RN sent for patient. Start room use. 9:30:43 Time tracking: Regular hours (M-F 7:00 - 5:00) 9:30:46 Plan of Care:Hemodynamics will remain stable., Cardiac rhythm will remain stable., Comfort level will be maintained., Respiratory function will remain adequate., Patient/ family verbilizes understanding of procedure., Procedure tolerated without complication., Recovers from procedure without complications.. 9:38:20 Patient received from Pre/Post Procedure Room to CCL 1 Alert and oriented. Tansferred to table in Supine position. 9:38:22 Correct patient and procedure confirmed by team. 9:38:22 Warm blankets applied, and naomie hugger turned on for patient comfort. 9:38:23 ECG and BP/O2 sat monitors applied to patient. 9:38:24 Pre-op teaching completed and patient verbalized understanding. 9:38:24 Pre-procedure instructions explained to patient. 9:38:33 H&P Date Dictated: 02/07/2019 Within 30 days and on chart., H&P Addendum completed by physician on day of procedure. (MUST COMPLETE FOR ALL OUTPATIENTS). 9:45:05 Vital chart was started 9:45:06 Baseline sample Acquired. 9:45:14 Rhythm: paced 9:45:33 Full Disclosure recording started 9:45:35 Family in patients room. 9:45:38 Patient NPO since Midnight. 9:45:39 Is the patient allergic to Iodine/contrast media? No. 9:45:40 Was the patient premedicated? No 9:45:43 Is patient on blood thinner?No 9:45:45 Patient diabetic? Yes. 9:45:47 If diabetic: On Metformin? Yes 9:45:50 If on Metformin: Last Dose? 02/21/2019 9:45:56 Previous problem with sedation/anesthesia? No ? 9:45:58 Snore? Yes 9:45:59 Sleep apnea? Yes 9:46:01 Deviated septum? No 9:46:02 Sticks out tongue? Yes 9:46:02 Opens mouth fully? Yes 9:46:06 Airway obstruction? Yes asthma 9:46:19 Dentures? No ? 9:46:29 Pre procedure: right dorsailis pedis pulse 2+ Normal; easily identifiable; not easily obliterated 9:46:31 Pre procedure: left dorsailis pedis pulse 2+ Normal; easily identifiable; not easily obliterated 9:46:34 Patient pain scale 0/10 ?. 9:46:48 IV patent on arrival in left antecubital with 0.9% NaCl at KVO. 9:46:50 Lab results completed and on chart. 9:46:53 Right Radial & Right Groin area was prepped with chlora-prep and draped in sterile fashion 9:46:54 Alarms reviewed by R. N. 9:46:55 Sharps counted by scrub and verified by R.N. 9:48:11 Lab Result : eGFR NONAFRICAN 90 ml/min 9:48:11 Lab Result : Hemoglobin 15.4 g/dl 9:48:11 Lab Result : BUN 11 mg/dl 9:48:11 Lab Result : Creatinine 0.9 mg/dl 9:48:17 Patient Height : 68.9 inches 9:48:21 Patient Weight : 220.46 lbs 9:49:16 Insurance Payor : Medicare 9:49:20 Arrival Date: 02/22/2019 10:30:00 AM 9:50:08 Oxygen 2 l/min etCO2 Nasal cannula was administered by Lanny Parrish RN; used for procedure; 9:50:33 Lidocaine 2% 20ml vial added to field was administered by David Greer MD; for local anesthetic; 9:50:38 Heparin Flush Bag (1000units/500ml NS) 2 bags added to field was administered by David Greer MD; used for procedure; 9:50:52 0.9% NaCl 100 ml/hr I.V. was administered by Lanny Parrish RN; Per physician; 9:51:00 --------ALL STOP TIME OUT------ 9:51:00 Physician arrived 9:51:01 Final Timeout: patient, procedure, and site verified with staff and physician. All members of the team are in agreement. 9:51:06 Right Radial & Right Groin site verified by team. 9:51:10 Fire Safety Assessment: A--An alcohol-based skin anteseptic being used preoperatively., C--Open oxygen or nitrous oxide is being used., D--An ESU, laser, or fiber-optic light is being used. 9:51:16 Physical assessment completed. ASA score P 2 - A patient with mild systemic disease as per David Greer MD. 9:51:19 Versed 1 mg I.V. was administered by Lanny Parrish RN; for sedation; 9:51:21 1) 90+ Normal kidney functon but urine findings or structural abnormalities or genetic trait point to kidney disease. 9:51:24 Fentanyl 50 mcg I.V. was administered by Lanny Parrish RN; for sedation; 9:51:26 Maximum allowable contrast dose (3.7 X eGFR X 0.75)250 ml. 9:51:30 Sedation plan: IV Moderate Sedation Medication:Versed, Fentanyl 9:51:38 Use device set Radial Dx or PCI 9:51:39 Medline Cath Pack ([id number]) opened to sterile field. 9:51:39 ACIST Syringe (52149) opened to sterile field. 9:51:40 ACIST Hand Control (19727) opened to sterile field. 9:51:40 Bag Decanter (2001S) opened to sterile field. 9:51:41 Tegaderm 4 x 4 (1626W) opened to sterile field. 9:51:41 ACIST Manifold (44076) opened to sterile field. 9:51:42 MBrace Wrist Support ([id number]) opened to sterile field. 9:51:49 SHEATH 6FR RAIN (3820683) opened to sterile field. 9:51:50 SOURAV Guide Wire (774-615) opened to sterile field. 9:52:05 Procedure started. 9:52:46 Local anesthetic to right radial artery with Lidocaine 2% by David Greer MD.INITIAL ACCESS ONLY 9:53:09 A 6 Fr Short sheath was inserted into the Right Radial artery 9:53:53 A DIAGNOSTIC [place] 110cm 5 Fr catheter (778832) was advanced over the wire and used for Multi-vessel Angiography. 9:54:34 Versed 1 mg I.V. was administered by Lanny Parrish RN; for sedation; 9:54:37 Fentanyl 50 mcg I.V. was administered by Lanny Parrish RN; for sedation; 9:55:31 Radial Cocktail (Verapamil 2mg/Nitro 400mcg/Heparin 1500units) 1 syringe I.A. was administered by David Greer MD; for vasodilation; 9:56:49 LV hemodynamics recorded. 9:56:50 LV gram done using ARELLANO 9:56:54 Injector settings: Ml/sec: 5, Volume: 15, 9:57:01 EF : 55 % 9:57:17 LCA angiography performed. 9:57:20 Injector settings: Ml/sec: 3, Volume: 6, 9:59:19 RCA angiography performed. 9:59:22 Injector settings: Ml/sec: 3, Volume: 6, 9:59:24 Catheter removed. 9:59:25 Proceeding to intervention. 10:00:32 Diamond Verrata Plus pressure wire (27055I) opened to sterile field. 10:00:32 GUIDE 6FR HS II SH catheter ([id number]) opened to sterile field. 10:00:33 INFLATOR Merit BasixCompak (FY2470) opened to sterile field. 10:01:03 ACCDominant side:Right 10:01:10 6 Fr hs 2 sh guide catheter was inserted over the wire 10:01:15 FFR/IFR wire advanced. 10:01:28 Baseline FFR 1. 10:03:57 Wire advanced across lesion. 10:04:07 pRCA lesion measured at 0.96 with IFR 10:04:48 mRCA lesion measured at 0.97 with IFR 10:05:36 Wire removed. 10:05:39 Guide catheter removed. 10:06:15 ZEPHYR REGULAR TR BAND (166942) opened to sterile field. 10:06:42 Sheath removed intact; hemostasis achieved with Mechanical Compression to the Right Radial artery. 10:06:44 Procedure ended.(Physican Out) 10:07:08 Fluoroscopy time 03.30 minutes. 10:07:37 Fluoroscopy dose: 724 mGy 10:07:37 Flurop Dose total: 724 10:07:52 Dose Area Product 07710 mGy/cm. 10:07:56 Contrast amount:Isovue 300 53ml. 10:08:03 Sharps counted by scrub and verified by R.N. 10:08:36 [place] band inflated with 10cc of air. 10:08:38 Insertion/operative site no bleeding no hematoma. 10:08:43 Post right radial artery:stable 10:09:27 Post Procedure Pulses reassessed and unchanged 10:09:58 Post procedure rhythm: unchanged. 10:10:01 Estimated blood loss: 5 ml 10:10:02 Post procedure instruction explained to patient.Patient verbalizes understanding. 10:10:03 Patient needs reinforcement of post procedure teaching. 10:10:12 Procedure type changed to Cath procedure, Diagnostic procedure, LHC, LHC w/Coronaries, Sedation Charges, Moderate Sedation up to 15 minutes 10:10:13 Procedure and supply charges have been captured, reviewed, submitted and are correct. 10:10:17 Procedure Complication : No complications 10:10:20 Vital chart was stopped 10:10:21 See physician's report for complete and final results. 10:10:54 Report given to Pre/Post Procedure Room. 10:10:57 Patient transfered to Pre/Post Procedure Room with Stretcher. 10:11:01 Full Disclosure recording stopped 10:11:01 Procedure ended. 10:11:05 End room use (Document Last) Device Usage Item Name Manufacture Quantity Catalog Hospital Part Current Mini mal Lot# / Number Charge Number Stock Stock Serial# Code ACIST Acist 1 33113 [id number] [id number] 20 Syringe Medical (88213) Systems Inc Medline Medline 1 [id number] 48711 935180 5 Cath Pack ([id number]) Bag Microtek 1 2001S 744142 19047 145837 5 Decanter Medical Inc. (2001S) ACIST Hand Acist 1 87936 305229 270390 590634 5 Control Medical (70936) Systems Inc ACIST Acist 1 91144 649910 053224 292787 5 Manifold Medical (30456) Systems Inc Tegaderm 4 3M 1 1626W 245140 906888 144693 5 x 4 (1626W) MBrace Advanced 1 140-0250-00 674120 69547 843849 5 Wrist Vascular Support Dynamics ([id number]) SHEATH 6FR Cardinal 1 7345460 172670 1384151 388311 5 [facility] (6091112) EMERALD Cardinal 1 502455 117233 529181 189031 5 Guide Wire Health (112-785) DIAGNOSTIC Terumo 1 40-8538 616901 396685 359361 5 [place] 110cm 5 Fr catheter (114827) GUIDE 6FR Medtronic 1 [id number] 943342 78366 098583 1 HS II SH catheter ([id number]) Diamond Diamond 1 [id number] 699465 [id number] 238828 5 Verrata Plus pressure wire (15482T) INFLATOR Merit 1 [id number] 476261 794174 717212 15 Merit Medical BasixCompak (LF7473) ZEPHYR Cardinal 1 591406 882034 5520423 496456 5 REGULAR TR Health BAND (182985) Signature Audit Solomon Stage Time Signature Unsigned Intra-Procedure 02/22/2019 Selene Ravi 10:15:14 AM RT(R) Signatures Performing Physician : Signature : David Greer MD Date : Time : Nurse : Kendal Delgado RN Signature : Date : Time : Monitor : Selene Ravi RT Signature : Date : Time : [address] [address]
[~2019-02-22 08:16] MED LIST changes: -LEVEMIR IN100 UNITS/ SC; -PIOGLITAZONE15 MG PO; -VIAGRA100 MG PO
[2019-02-22 09:00] VITALS: BP 135/86; Ht 175.3 cm; Wt 100.0 kg
[2019-02-22 09:15] LABS: BASOPHILS 0.1 % (0-2); EOSINOPHILS 1.3 % (0-7); HEMATOCRIT 42.4 % (42.0-54.0); HEMOGLOBIN 15.4 g/dL (13.5-17.5); IMMATURE GRANULOCYTES 0.4 % (0-5); LYMPHOCYTES 21.1 % (15-50); MCH 31.6 pg (26.0-34.0); MCHC 36.3 g/dL (31.0-37.0); MCV 87.1 fL (80.0-100.0); MEAN PLATELET VOLUME 10.1 fL (7.4-10.4); NEUTROPHILS 68.1 % (40-80); PLATELET COUNT 156 10x3/uL (130-400); RBC 4.87 10x6/uL (4.20-6.10); RDW 13.7 % (11.5-14.5); WBC 7.8 10x3/uL (4.8-10.8)
[2019-02-22] MEDS ORDERED: LEVEMIR IN100 UNITS/ SC (09:18)
[2019-02-22] MEDS ORDERED: PIOGLITAZONE15 MG PO ×2 (09:19→09:21)
[2019-02-22] MEDS ORDERED: VIAGRA100 MG PO (09:20)
[2019-02-22 09:24] LABS: CALC OSMOLALITY 286 mosm/kg (275-300); CALCIUM 9.2 mg/dL (8.5-10.1); CARBON DIOXIDE 29.7 mmol/L (21.0-32.0); CHLORIDE - SERUM 100 mmol/L (98-107); CREATININE - SERUM 0.9 mg/dL (0.6-1.3); POTASSIUM - SERUM 4.3 mmol/L (3.5-5.1); SODIUM 136 mmol/L (136-145); UREA NITROGEN 11 mg/dL (7-18); eGFR NON AFRICAN AMERICAN > 90 mL/min (90-120)
[2019-02-22 09:25] LABS: GLUCOSE 385 mg/dL (74-106)
--- NOTE | 2019-02-22 10:35 | NUR ---
1035 PT SLEEPING, RESP WITH EASE ON O2 AT 2LPM VIA NC. Z BAND IS CDI, FINGERS WARM AND CAP REFILL IS BRISK. VSS, AT BEDSIDE
--- NOTE | 2019-02-22 11:00 | NUR ---
PT STLEEPING, RESP WITH EASE. Z BAND IS CDI, FINGERS WARM AND CAP REFILL IS BRISK. VSS, AT BEDSIDE, CALL LIGHT IN REACH.
--- NOTE | 2019-02-22 11:19 | NUR ---
3 CC OF AIR WEANED FROM TR BAND WITH NO BLEEDING NOTED. FINGERS WARM AND CAP REFILL IS BRISK.
--- NOTE | 2019-02-22 11:36 | NUR ---
3 CC OF AIR WEANED FROM Z BAND WITH NO BLEEDING OR HEMATOMA NOTED.
--- NOTE | 2019-02-22 11:37 | NUR ---
HOB ELEVATED AND SANDWICH/ PO FLUIDS SERVED. PT IS ALERT AND DENIES ANY C/O. Z BAND CDI, FINGERS WARM AND CAP REFILL IS BRISK.
--- NOTE | 2019-02-22 11:50 | NUR ---
ALL AIR HAS BEEN WEANED FROM Z BAND WITH NO BLEEDING NOTED. FINGERS WARM, PULSES PALPABLE. WRIST IMMOBILIZER IN PLACE.
--- NOTE | 2019-02-22 12:04 | NUR ---
DC INSTRUCTIONS HAVE BEEN REVIEWED WITH PT AND WHO VERBALIZE UNDERSTANDING. IV DC'D WITH CATH INTACT, PT DRESSING FOR DC WITH ASSIST.
--- NOTE | 2019-02-22 12:15 | NUR ---
2X2 AND TEGADERM CDI TO RIGHT WRIST, WRIST IMMOBILIZER IN PLACE. RADIAL PULSE PALPABLE. FINGERS WARM AND CAP REFILL IS BRISK. PT DENIES ANY NV DEFICIT TO HAND. IS ALERT AND DENIES ANY C/O. PT HAS DRESSED FOR DC TO HOME WITH ASSIST AND HAS VOIDED 550 CC CLEAR YELLOW URINE TO URINAL. PT ESCORTED TO PRIVATE AUTO VIA WC BY NURSE WITH DRIVING HIM HOME. PT HAS ALL PERSONAL BELONGINGS AND DC INSTRUCTIONS AT TIME OF DISCHARGE.
--- NOTE | 2019-02-22 14:32 | OP ---
PATIENT NAME: MATTHEW GOMEZ MEDICAL RECORD: [id number] :62 LOCATION:[facility] ADMISSION DATE: SURGEON: FAHAD CORNELL MD DATE OF OPERATION: 02/22/2019 PROCEDURES: 1. Left heart catheterization. 2. Selective coronary angiography. 3. Left ventriculogram. 4. IFR. INDICATION: Angina, abnormal nuclear stress, coronary artery disease. PROCEDURE IN DETAIL: After informed consent was obtained and after a detailed description of risks, benefits as well as alternative therapies, the patient elected to proceed with angiogram and heart catheterization. The right radial area was prepped and draped in normal sterile fashion. Right radial artery was cannulated via modified Seldinger technique with placement of 5-Bahraini sheath. All catheters exchanged through this sheath. FINDINGS: Left ventriculogram was performed in standard 30-degree ARELLANO view, reveals good cardiac wall motion, ejection fraction 50%. SELECTIVE CORONARY ANGIOGRAPHY: 1. Left main has no significant angiographic disease. 2. Left anterior descending has previously placed stent that is widely patent with no significant restenosis. No disease elsewise at the LAD or its branches. 3. Left circumflex has moderate irregularities, but no flow-limiting stenosis. 4. Right coronary has questionable stenosis proximally; however, IFR was normal. OVERALL IMPRESSION: Minimal coronary artery disease is present. No restenosis of the previously placed stents. Continue medical management of the coronary artery disease and cardiac risk factors. TRANSINT:[id number] Voice Confirmation ID: [id number] DOCUMENT ID: [id number] FAHAD CORNELL MD at 1432 CC: [id number] DICTATION DATE: 02/22/19 1010 CATTERY OPERATOR: 02/22/19 1214 DEP CLI 02/22/19 [place] [id number] [place] [id number]
== END 2019-02-22 12:15 | disposition home or self-care (01) ==
LOC: D.CATH 08:16
PROVIDERS: ATTEND Internal Medicine Interventional Cardiology
DX: I25.119 Atherosclerotic heart disease of native coronary artery with unspecified angina pectoris (principal); Z95.5 Presence of coronary angioplasty implant and graft; Z01.812 Encounter for preprocedural laboratory examination

== ENCOUNTER → 2019-06-01 08:31 | Outpatient (CLI) | payer MEDICARE ==
[2019-02-22 09:00] VITALS: BMI 32.5
[~2019-06-01 08:31] MED LIST changes: +LEVEMIR IN100 UNITS/ SC; +PIOGLITAZONE15 MG PO; +VIAGRA100 MG PO
== END | disposition home or self-care (01) ==
LOC: D.US 08:31
PROVIDERS: ATTEND Nurse Practitioner Family
DX: J44.9 Chronic obstructive pulmonary disease, unspecified (principal); R06.09 Other forms of dyspnea

== ENCOUNTER → 2019-07-03 09:50 | Outpatient (CLI) | payer MEDICARE ==
[2019-02-22 09:00] VITALS: BMI 32.5
--- NOTE | ~2019-07-03 | EC ---
PATIENT:MATTHEW GOMEZ DATE OF SERVICE: 07/03/19 SEX: M MEDICAL RECORD: [id number] DATE OF : 62 [facility] AGE OF PATIENT: 58 ADMISSION DATE: 07/03/19 REFERRING PHYSICIAN: INTERPRETING PHYSICIAN: FAHAD GREER MD ECHOCARDIOGRAM REPORT ECHO CHARGES 4 ECHO COMPLETE Date: 07/03/19 CLINICAL DIAGNOSIS: DYSPNEA, COPD ECHOCARDIOGRAPHIC MEASUREMENTS (adult normal given) AC root (d.<3.7cm) 3.6 cm LV Septum d (<1.2 cm> 1.0 cm Valve Excursion 1.8 cm LV Septum (systole) 1.3 cm Left Atria (s.<4.0cm> 3.6 cm LVPW d(<1.2cm) 0.8 cm RV (d.<2.3cm) 3.0 cm LVPW (sytole) 1.0 cm LV diastole(<5.6CM) 6.3 cm MV E-F(>70mm/sec) cm LV systole 5.0 cm LVOT Diameter 1.9 cm MV exc.(>10mm) cm Est.ejection fraction (50-75%) % DOPPLER: LVIT cm/sec A 67 cm/sec E 53 cm/sec LA cm/sec RVSP 17.1 mmHg LVOT 84 cm/sec AOP1/2T m/s Asc. Ao 106 cm/sec RVOT 47 cm/sec RA cm/sec PA 80 cm/sec AV Gradient Peak 4.5 mmHg AV Mean 2.5 mmHg AV Area 2.3 cm MV Gradient Peak 1.8 mmHg MV Mean 1.1 mmHg MV Area cm COMMENTS: Wagon Winder: Gildardo [facility] Pacs Administrator: Shashank Greer TAPE# PACS Pericardial Effusion N DATE OF SERVICE: 07/03/2019 Echocardiogram FINDINGS: 1. Left ventricular chamber size is mildly dilated. Left ventricular systolic function is preserved at 55% to 60%. 2. Left atrium is within normal limits. Right atrium and right ventricular chamber sizes are mildly dilated. 3. Valvular structures have normal structure and motion. ECHOCARDIOGRAM REPORT [id number] MATTHEW GOMEZ 4. Doppler interrogation reveals no significant valvular insufficiency or stenosis and pulmonary systolic pressure is normal estimated at 17 mmHg. 5. No evidence of pericardial effusion or left ventricular thrombus. 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
== END | disposition home or self-care (01) ==
LOC: D.RT 06-30 10:00 → D.ECHO 09:50 → D.RT 11:00
PROVIDERS: ATTEND Internal Medicine Pulmonary Disease
DX: J44.9 Chronic obstructive pulmonary disease, unspecified (principal); R06.09 Other forms of dyspnea

== ENCOUNTER → 2020-01-18 07:31 | Outpatient (CLI) | payer MEDICARE ==
[2019-02-22 09:00] VITALS: BMI 32.5
== END | disposition home or self-care (01) ==
LOC: D.CT 07:31
PROVIDERS: ATTEND Nurse Practitioner Family
DX: I70.213 Atherosclerosis of native arteries of extremities with intermittent claudication, bilateral legs (principal)